=== PATIENT | female | born 2000 | race Caucasian/White ===

== ENCOUNTER 2018-03-18 14:35 | Outpatient (CLI) | payer SELFPAY ==
[2018-03-18 15:47] VITALS: BP 126/73; PULSE 83; RESP 18; TEMP 97.3
--- NOTE | 2018-03-19 06:31 | P.MSEPDOC ---
Presenting Problems - Arrival Data Date of Arrival on Unit: 03/18/18 Time of Arrival on Unit: 14:35 Mode of Transport: Ambulatory - Complaint OB-Reason for Admission/Chief Complaint: Rule Out PROM Comment: pt unsure if she had PROM at 1400, states she had clear fluic Medical History - Information : 1 Para: 0 Term: 0 : 0 Abortions: Spontaneous or Elective: 0 Number of Living Children: 0 - Gestational Age Gestational Age by AB (wks/days): 31 Weeks and 6 Days Review of Systems - Review of Systems Constitutional: No problems Breast: No problems ENT: No problems Cardiovascular: No problems Respiratory: No problems Gastrointestinal: No problems Genitourinary: No problems Musculoskeletal: No problems Neurological: No problems Skin: No problems Vital Signs - Temperature Temperature: 97.3 F Temperature Source: Temporal Artery Scan - Pulse Right Brachial Pulse Rate: 83 Pulse Assessment Method: Automatic Cuff - Respirations Respiratory Rate: 18 Oxygen Delivery Method: Room Air O2 Sat by Pulse Oximetry: 98 - Blood Pressure Right Arm Blood Pressure: 126/73 Blood Pressure Mean: 90 Blood Pressure Source: Automatic Cuff Medical Screen Scoring (Pre) - Cervical Exam Dilation: 0 cm = 0 Effacement: Exam Deferred Membranes: Intact - Uterine Contractions Frequency: N/A Duration: N/A Intensity: N/A - Maternal Vital Signs Maternal Temperature: N/A Maternal Blood Pressure: N/A Signs of Preeclampsia: N/A Maternal Respirations: N/A - Pain Assessment Pain Scale Used: Numeric (1 - 10) Pain Intensity: 0 - Maternal Trauma Maternal Trauma: N/A - Assessment Baseline FHR: 140 Heart Rate - NICHD Category: Category I (Normal) = 0 NST: Reactive Position: N/A Station: N/A - Total Score Total Score (Pre): 0 - Level of Risk Level of Risk: Low (0-5) Physician Notification (Pre) - Physician Notified Physician Notified Date: 03/18/18 Physician Notified Time: 15:25 Physician/Practitioner Notifed:: Dr Walker Spoke With: Dr. Cuevas New Order Received: Yes - Notification Comment Comment: discharge pt home Disposition - Disposition OB Disposition: Triage, Discharge to home, Written follow up instructions reviewed Discharge Date: 03/18/18 Discharge Time: 15:30 I agree with the RN Medical Screening Exam: Yes Risk & Benefit of care provided described in d/c instruction: Yes Diagnosis: FALSE LABOR BEFORE 37 COMPLETED WEEKS OF GEST, THIRD TRI
== END 2018-03-18 15:30 | disposition home or self-care (01) ==
LOC: FBPOP 14:35
PROVIDERS: ATTEND Obstetrics & Gynecology
DX: O47.03 False labor before 37 completed weeks of gestation, third trimester (principal); Z3A.31 31 weeks gestation of pregnancy
CPT/HCPCS: 59025; 84112; 99213

== ENCOUNTER 2018-05-12 06:00 | Inpatient (IN) | payer OTHER ==
[2018-05-12] MEDS ORDERED: OXYTOCIN 10 UNIT/ML 1 ML VIAL IM PRN (06:49)
[2018-05-12] MEDS ORDERED: LIDOCAINE 0.5% (PF) 5 MG/ML (50 ML SDV) SQ PRN (06:49)
[2018-05-12] MEDS ORDERED: METHYLERGONOVINE 0.2 MG/ML 1 ML AMP IM PRN (06:49)
[2018-05-12] MEDS ORDERED: OXYTOCIN 20 UNITS/1000 ML NS 1,000 ML IV SCH (06:49)
[2018-05-12] MEDS ORDERED: TERBUTALINE 1 MG/ML VIAL SQ PRN (06:49)
[2018-05-12] MEDS ORDERED: CARBOPROST TROMETHAMINE 250 MCG/ML 1 ML AMP IM PRN (06:49)
[2018-05-12] MEDS: LACTATED RINGERS 1,000 ML IV SCH ×2 (07:00→10:48)
[2018-05-12] MEDS ORDERED: AMPICILLIN 2,000 MG in SODIUM CHLORIDE 0.9% 100 ML IVPB STA (07:08)
[2018-05-12 07:17] LABS: Basophils % (A) 0 %; Eosinophils # (A) 0.1 k/uL (0-0.7); Eosinophils % (A) 1 %; HCT 36.4 % (34.0-46.0); HGB 12.3 gm/dL (11.4-16.0); Lymphocytes # (A) 2.2 k/uL (1.0-4.8); Lymphocytes % (A) 25 %; MCH 30.9 pg (25.0-35.0); MCHC 33.9 g/dL (31.0-37.0); MCV 91.4 fL (80.0-100.0); Monocytes # (A) 0.7 k/uL (0-1.0); Monocytes % (A) 7 %; Neutrophils # (A) 5.8 k/uL (1.3-7.7); Neutrophils % (A) 64 %; Platelet Count 271 k/uL (150-450); RBC 3.98 m/uL (3.80-5.40); RDW 13.1 % (11.5-15.5)
[2018-05-12 07:21] VITALS: BMI 30.9
[2018-05-12] MEDS ORDERED: SODIUM CHLORIDE 0.9% 100 ML BAG ONE (10:31)
[2018-05-12] MEDS ORDERED: fentaNYL (PF) 50 MCG/ML 5 ML AMP ONE (10:31)
[2018-05-12] MEDS ORDERED: ROPIVACAINE 5MG/ML 20ML VIAL ONE (10:31)
[2018-05-12] MEDS ORDERED: ROPIVACAINE 100 MG, fentaNYL (PF) 200 MCG in SODIUM CHLORIDE 0.9% 76 ML EPIDURAL ONE (10:56)
[2018-05-12] MEDS ORDERED: AMPICILLIN 1,000 MG in SODIUM CHLORIDE 0.9% 50 ML IVPB SCH (11:30)
--- NOTE | 2018-05-12 17:00 | P.HPOB ---
History of Present Illness H&P Date: 05/12/18 Chief Complaint: Intrauterine at term Patient is a 19-year-old at 39 weeks gestation arise for induction of labor. Her course has been unremarkable and she is feeling well at this time. She did do kick counts over the third trimester due to one episode of decreased movement but had been feeling baby move well since then. Pertinent labs include A+ blood type Rh antibody was negative. Rubella was nonimmune, hepatitis B surface antigen and RPR were both negative group B strep was positive. We'll plan group B strep prophylaxis. She is dilated to 2 cm this morning artificial rupture membranes was performed and clear fluid is noted. Category 1 tracing is noted. Past Medical History History of Any Multi-Drug Resistant Organisms: None Reported Past Surgical History: Adenoidectomy, Tonsillectomy Past Anesthesia/Blood Transfusion Reactions: No Reported Reaction Past Psychological History: Anxiety Smoking Status: Never smoker Past Drug Use History: None Reported - Past Family History Mother Family Medical History: No Reported History Medications and Allergies Home Medications Medication Instructions Recorded Confirmed Type No Known Home Medications 03/18/18 05/12/18 History Allergies Allergy/AdvReac Type Severity Reaction Status Date / Time peanut Allergy Anaphylaxis Verified 05/12/18 06:48 Exam Osteopathic Statement: *. No significant issues noted on an osteopathic structural exam other than those noted in the History and Physical/Consult. Vital Signs Temp Pulse Resp BP 05/12/18 16:45 109 H 14 118/69 05/12/18 16:15 100 16 122/71 05/12/18 16:00 100 14 133/73 05/12/18 15:45 104 H 16 120/57 05/12/18 15:30 109 H 14 148/88 05/12/18 15:15 99.1 F 115 H 18 145/63 05/12/18 06:47 97.4 F L 90 14 116/75 Intake and Output 05/12/18 05/12/18 05/12/18 06:59 14:59 22:59 Intake Total 2800 Balance 2800 Intake: IV 2800 Lactated Ringers 1,000 ml 2800 @ 125 mls/hr IV .Q8H CHELE Rx#:[id number] Other: Weight 84.368 kg - OBG Physical Exam Breast: both: normal (no masses) Abdomen: bowel sounds normal, no diffuse tenderness, no bruit present, no guarding noted, no hepatomegaly, no splenomegaly, no mass Vulva: both: normal Vagina: normal moisture, no discharge Cervix: no lesion, no discharge Uterus: normal size, normal contour Adnexa: both: normal Anus/Rectum: normal perianal skin, no rectal mass, no hemorrhoids, heme negative Results Result Diagrams: 05/12/18 06:57
--- NOTE | 2018-05-12 17:01 | P.PROBDLV ---
Vaginal Delivery Note - . Vaginal Delivery Note: Patient progressed complete and pushing with spontaneous vaginal delivery of a viable male over a first-degree perineal laceration. Following delivery of the head a nuchal cord 1 was easily reduced an anterior posterior shoulders were easily delivered. Mouth and nares were then bulb suctioned and baby was placed on mother's abdomen where the umbilical cord was clamped and cut in usual fashion. Nursery personnel was present to assume care. Placenta was then delivered intact and Pitocin was added to the IV. Apgars and weight are pending but both mother and baby appear stable following delivery. Interrupted 3-0 Vicryl suture was used to reapproximate the first-degree perineal laceration.
[2018-05-12] MEDS ORDERED: WITCH HAZEL 1 EACH MED..PAD TOPICAL PRN (18:46)
[2018-05-12] MEDS ORDERED: ACETAMINOPHEN TAB 325 MG TAB PO PRN (18:46)
[2018-05-12] MEDS ORDERED: BENZOCAINE/MENTHOL SPRAY 1 GM/SPRAY AEROSOL TOPICAL PRN (18:46)
[2018-05-12] MEDS ORDERED: LANOLIN CREAM 5 GM TUBE TOPICAL PRN (18:46)
[2018-05-12] MEDS ORDERED: diphenhydrAMINE 25 MG CAP PO PRN (18:46)
[2018-05-12] MEDS ORDERED: SIMETHICONE 80 MG CHEWABLE PO PRN (18:46)
[2018-05-12] MEDS ORDERED: MEASLES-MUMPS-RUBELLA VACC/PF 12,500 UNIT/0.5 ML VIAL SQ ONE (18:46)
[2018-05-12] MEDS ORDERED: ZOLPIDEM 5 MG TAB PO PRN (18:46)
[2018-05-12] MEDS: SENNOSIDES-DOCUSATE SODIUM 1 EACH TAB PO SCH (20:13)
[2018-05-12] MEDS: IBUPROFEN 600 MG TAB PO PRN (20:13)
[2018-05-12 20:32] VITALS: RESP 16
[2018-05-13 06:48] LABS: Basophils % (A) 0 %; Eosinophils # (A) 0.1 k/uL (0-0.7); Eosinophils % (A) 1 %; HCT 31.7 % (34.0-46.0); HGB 10.6 gm/dL (11.4-16.0); Lymphocytes # (A) 2.1 k/uL (1.0-4.8); Lymphocytes % (A) 19 %; MCH 31.3 pg (25.0-35.0); MCHC 33.4 g/dL (31.0-37.0); MCV 93.7 fL (80.0-100.0); Monocytes # (A) 0.8 k/uL (0-1.0); Monocytes % (A) 7 %; Neutrophils # (A) 7.7 k/uL (1.3-7.7); Neutrophils % (A) 70 %; Platelet Count 220 k/uL (150-450); RBC 3.39 m/uL (3.80-5.40); RDW 13.1 % (11.5-15.5)
[2018-05-13] MEDS: SENNOSIDES-DOCUSATE SODIUM 1 EACH TAB PO SCH (07:39)
[2018-05-13] MEDS: IBUPROFEN 600 MG TAB PO PRN (07:41)
--- NOTE | 2018-05-13 09:51 | P.DS ---
Providers Date of admission: 05/12/18 06:37 Expected date of discharge: 05/13/18 Attending physician: Kaveh Lopez Primary care physician: Stated None Hospital Course: Patient is doing very well day 1. She is requesting discharge home today. She is ambulating, voiding, and she is tolerating her diet. She voices no complaints. Vital signs are stable and she is afebrile. Heart regular, lungs clear, extremities are without pain. Abdomen is soft and uterus is firm with lochia reported to be light. Assessment day 1. Plan discharged home follow up with me in 6 weeks. A prescription for Motrin was forwarded to her pharmacy. All other questions are answered for her and discharge instruction were thoroughly reviewed. Patient Condition at Discharge: Good Plan - Discharge Summary New Discharge Prescriptions: New Ibuprofen [Motrin] 600 mg PO Q6HR PRN #30 tab PRN Reason: Pain Discharge Medication List Ibuprofen [Motrin] 600 mg PO Q6HR PRN #30 tab 05/13/18 [Rx] Follow up Appointment(s)/Referral(s): Kaveh Lopez DO [Doctor of Osteopathic Medicine] - 6 Weeks Activity/Diet/Wound Care/Special Instructions: no heavy lifting, limit stairs and driving and pelvic rest. call the office for any high temperatures, heavy bleeding, or severe pain Discharge Disposition: HOME SELF-CARE
[2018-05-13 10:55] VITALS: BP 121/75; PULSE 72; TEMP 98.2
== END 2018-05-13 15:55 | disposition home or self-care (01) | DRG 807 ==
LOC: 4FBP 06:37
PROVIDERS: ADMIT Obstetrics & Gynecology; ATTEND Obstetrics & Gynecology
PROC: 3E0R3NZ Introduction of Analgesics, Hypnotics, Sedatives into Spinal Canal, Percutaneous Approach (ICD-10-PCS; principal; 2018-05-12)
PROC: 10E0XZZ Delivery of Products of Conception, External Approach (ICD-10-PCS; principal; 2018-05-12)
PROC: 00HU33Z Insertion of Infusion Device into Spinal Canal, Percutaneous Approach (ICD-10-PCS; principal; 2018-05-12)
PROC: 10907ZC Drainage of Amniotic Fluid, Therapeutic from Products of Conception, Via Natural or Artificial Opening (ICD-10-PCS; principal; 2018-05-12)
PROC: 0HQ9XZZ Repair Perineum Skin, External Approach (ICD-10-PCS; principal; 2018-05-12)
DX: O69.81X0 Labor and delivery complicated by cord around neck, without compression, not applicable or unspecified (principal); Z37.0 Single live birth; O70.0 First degree perineal laceration during delivery; Z3A.39 39 weeks gestation of pregnancy; O99.824 Streptococcus B carrier state complicating childbirth; Z91.010 Allergy to peanuts
CPT/HCPCS: 85025; 86850; 86900; 86901; 90707

== ENCOUNTER → 2018-11-25 | Outpatient (CLI) | payer OTHER | END | disposition home or self-care (01) | LOC: LABWHC1 10:24 | PROVIDERS: ATTEND Physician Assistant | DX: O20.0 Threatened abortion (principal) | CPT/HCPCS: 36415; 84702 ==

== ENCOUNTER 2019-05-27 17:49 | Outpatient (CLI) | payer OTHER ==
--- NOTE | 2019-05-27 19:28 | US ---
EXAMINATION TYPE: US OB >= 14 wk fetus DATE OF EXAM: 05/27/2019 COMPARISON: None CLINICAL HISTORY: no care, bleeding TECHNIQUE: Transabdominal (TA) GESTATIONAL AGE / DATING Physician Established: Not yet established Dates by LMP: 11/23/2018 (26 weeks/3 days) EDC: 08/30/2019 Dates by First Scan: No previous this is first scan Dates by Current Scan: (21 weeks/1 days) EDC: 10/06/2019 SURVEY IUP: Single PLACENTA: Posterior PREVIA: No Previa FRANK: 15.9 cm Normal CERVICAL LENGTH (transabdominal: norm > 3.0cm): 3.3 cm BIOMETRY PRESENTATION: Vertex BPD: 5.1 cm 21 weeks / 4 days HC: 18.9 cm 21 weeks / 1 days AC: 15.9 cm 21 weeks / 0 days FL: 3.7 cm 21 weeks / 4 days ESTIMATED WEIGHT IN GRAMS: 412.27 grams ESTIMATED WEIGHT IN LBS/OZ: 0 lbs. 15 oz. WEIGHT PERCENTAGE BASED ON ESTABLISHED DATES: <3% HC/AC: 1.2 Normal FL/AC: 23 Normal HEART RATE: 147 bpm RHYTHM: Normal No obvious signs of placental abruption or PROM. No care, measuring 5 weeks less t engle patient's stated LMP. IMPRESSION: Estimated weight is 412 g. Ultrasound gestational age is 21 weeks and 1 day. No complicating pr ocess seen. This is the first exam.
[2019-05-27 20:11] VITALS: BP 117/67; PULSE 71; RESP 18; TEMP 97.3
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
== END 2019-05-27 19:45 | disposition home or self-care (01) ==
LOC: FBPOP 17:49
PROVIDERS: ATTEND Obstetrics & Gynecology
DX: O26.852 Spotting complicating pregnancy, second trimester (principal); Z3A.21 21 weeks gestation of pregnancy
CPT/HCPCS: 76805; 99213

== ENCOUNTER 2019-08-05 11:53 | Outpatient (CLI) | payer OTHER ==
[2019-08-06 00:42] VITALS: BP 129/65; PULSE 96; RESP 16; TEMP 97.3
--- NOTE | 2019-08-06 11:26 | P.MSEPDOC ---
Presenting Problems - Arrival Data Date of Arrival on Unit: 08/05/19 Time of Arrival on Unit: 23:53 Mode of Transport: Ambulatory - Complaint OB-Reason for Admission/Chief Complaint: Rule Out SROM Comment: Patient presents to triage stating she is unsure if she is ruptured, has noted some clear watery, mucousy discharge in her underwear since her appointment on thursday but was unaware she should come in to be checked out until a friend discussed with her that she should come to triage. Denies intercourse or contractions. Medical History - Information : 3 Para: 1 Term: 1 : 0 Abortions: Spontaneous or Elective: 1 Number of Living Children: 1 - Gestational Age Gestational Age by AB (wks/days): 31 Weeks and 2 Days Review of Systems - Review of Systems Constitutional: No problems Breast: No problems ENT: No problems Cardiovascular: No problems Respiratory: No problems Gastrointestinal: No problems Genitourinary: No problems Musculoskeletal: No problems Neurological: No problems Skin: No problems Vital Signs - Temperature Temperature: 97.3 F Temperature Source: Temporal Artery Scan - Pulse Pulse Oximetery Pulse Rate: 96 Pulse Assessment Method: Automatic Cuff - Respirations Respiratory Rate: 16 Oxygen Delivery Method: Room Air O2 Sat by Pulse Oximetry: 98 - Blood Pressure Sitting Blood Pressure: 129/65 Blood Pressure Mean: 86 Blood Pressure Source: Automatic Cuff Medical Screen Scoring (Pre) - Cervical Exam Dilation: 0 cm = 0 Effacement: Exam Deferred Membranes: Intact - Uterine Contractions Frequency: N/A Duration: N/A Intensity: N/A - Maternal Vital Signs Maternal Temperature: N/A Maternal Blood Pressure: N/A Signs of Preeclampsia: N/A Maternal Respirations: N/A - Maternal Trauma Maternal Trauma: N/A - Assessment - Baby A Baseline FHR: 135 Heart Rate - NICHD Category: Category I (Normal) = 0 NST: Reactive Position: N/A Station: N/A - Total Score - Baby A Total Score - Baby A: 0 - Total Score - Baby B Total Score - Baby B: 0 - Total Score - Baby C Total Score - Baby C: 0 - Level of Risk - Baby A Level of Risk - Baby A: Low (0-5) - Level of Risk - Baby B Level of Risk - Baby B: Low (0-5) - Level of Risk - Baby C Level of Risk - Baby C: Low (0-5) Physician Notification (Pre) - Physician Notified Physician Notified Date: 08/06/19 Physician Notified Time: 00:29 New Order Received: Yes - Notification Comment Comment: Orders to discharge patient home with instructions, reinforce to patient that if she ever thinks she is ruptured to come in to be evaluated. Disposition - Disposition OB Disposition: Discharge to home, Written follow up instructions reviewed Discharge Date: 08/06/19 Discharge Time: 00:42 I agree with the RN Medical Screening Exam: Yes Risk & Benefit of care provided described in d/c instruction: Yes Diagnosis: FALSE LABOR BEFORE 37 COMPLETED WEEKS OF GEST, THIRD TRI
== END 2019-08-06 00:42 | disposition home or self-care (01) ==
LOC: FBPOP 11:53
PROVIDERS: ATTEND Obstetrics & Gynecology
DX: O47.03 False labor before 37 completed weeks of gestation, third trimester (principal); Z3A.31 31 weeks gestation of pregnancy
CPT/HCPCS: 59025; 84112; G0463; 99213

== ENCOUNTER 2019-09-30 06:15 | Inpatient (IN) | payer OTHER ==
[2019-09-30] MEDS ORDERED: METHYLERGONOVINE 0.2 MG/ML 1 ML AMP IM PRN (07:13)
[2019-09-30] MEDS ORDERED: LIDOCAINE 0.5% (PF) 5 MG/ML (50 ML SDV) SQ PRN (07:13)
[2019-09-30] MEDS ORDERED: CARBOPROST TROMETHAMINE 250 MCG/ML 1 ML AMP IM PRN (07:13)
[2019-09-30] MEDS ORDERED: AMPICILLIN 2,000 MG in SODIUM CHLORIDE 0.9% 100 ML IVPB STA (07:13)
[2019-09-30] MEDS ORDERED: TERBUTALINE 1 MG/ML VIAL SQ PRN (07:13)
[2019-09-30] MEDS ORDERED: OXYTOCIN 10 UNIT/ML 1 ML VIAL IM PRN (07:13)
[2019-09-30] MEDS ORDERED: OXYTOCIN 30 UNITS/500 ML NS 30 UNIT in SALINE 1 500ML.BAG IV SCH (07:15)
[2019-09-30] MEDS: LACTATED RINGERS 1,000 ML IV SCH ×2 (07:36→11:20)
[2019-09-30 07:54] LABS: Basophils % (A) 0 %; Eosinophils # (A) 0.1 k/uL (0-0.7); Eosinophils % (A) 1 %; HCT 35.2 % (34.0-46.0); HGB 11.8 gm/dL (11.4-16.0); Lymphocytes # (A) 2.1 k/uL (1.0-4.8); Lymphocytes % (A) 23 %; MCHC 33.4 g/dL (31.0-37.0); MCV 95.7 fL (80.0-100.0); Mean Platelet Volume 9.4; Monocytes # (A) 0.6 k/uL (0-1.0); Monocytes % (A) 7 %; Neutrophils # (A) 6.1 k/uL (1.3-7.7); Neutrophils % (A) 67 %; Platelet Count 214 k/uL (150-450); RBC 3.68 m/uL (3.80-5.40); RDW 12.9 % (11.5-15.5); WBC 9.2 k/uL (3.8-10.6)
[2019-09-30] MEDS ORDERED: ROPIVACAINE 100 MG, fentaNYL (PF) 200 MCG in SODIUM CHLORIDE 0.9% 76 ML EPIDURAL ONE (11:09)
[2019-09-30] MEDS: AMPICILLIN 1,000 MG in SODIUM CHLORIDE 0.9% 50 ML IVPB SCH (12:10)
--- NOTE | 2019-09-30 14:19 | P.HPOB ---
History of Present Illness H&P Date: 09/30/19 Chief Complaint: Intrauterine at term Patient is a 19-year-old at 39 weeks gestation arise for induction of labor. Her course has been uncomplicated other than late for care. Otherwise she is feeling well and doing well at this time. Category 1 tracing is noted. She was dilated 3 cm and artificial rupture membranes was performed with clear fluid noted. Pertinent labs did include, Rh antibody was negative, rubella is nonimmune, hepatitis B surface antigen and RPR were both negative. She plans to use epidural for analgesia. Past Medical History Past Medical History: No Reported History History of Any Multi-Drug Resistant Organisms: None Reported Past Surgical History: Adenoidectomy, Tonsillectomy Additional Past Surgical History / Comment(s): childhood Past Anesthesia/Blood Transfusion Reactions: No Reported Reaction Past Psychological History: Anxiety Smoking Status: Never smoker Past Alcohol Use History: None Reported Past Drug Use History: None Reported - Past Family History Mother Family Medical History: No Reported History Medications and Allergies Home Medications Medication Instructions Recorded Confirmed Type Pnv,Calcium 72/Iron/Folic Acid 1 tab PO DAILY 09/30/19 09/30/19 History [ Plus Tablet] Allergies Allergy/AdvReac Type Severity Reaction Status Date / Time peanut Allergy Anaphylaxis Verified 08/06/19 00:17 Exam Osteopathic Statement: *. No significant issues noted on an osteopathic structural exam other than those noted in the History and Physical/Consult. Vital Signs Temp Pulse Resp BP Pulse Ox 09/30/19 07:17 96.1 F L 88 16 127/71 98 Intake and Output 09/29/19 09/30/19 09/30/19 22:59 06:59 14:59 Other: Weight 88.451 kg - OBG Physical Exam Breast: both: normal (no masses) Abdomen: bowel sounds normal, no diffuse tenderness, no bruit present, no guarding noted, no hepatomegaly, no splenomegaly, no mass Vulva: both: normal Vagina: normal moisture, no discharge Cervix: no lesion, no discharge Uterus: normal size, normal contour Adnexa: both: normal Anus/Rectum: normal perianal skin, no rectal mass, no hemorrhoids, heme negative Results Result Diagrams: 09/30/19 07:25 Abnormal Lab Results - Last 24 Hours (Table) 09/30/19 Range/Units 07:25 RBC 3.68 L (3.80-5.40) m/uL
--- NOTE | 2019-09-30 14:20 | P.PROBDLV ---
Vaginal Delivery Note - . Vaginal Delivery Note: Patient breast complete and pushed with spontaneous vaginal delivery of a viable male over an intact perineum. Following delivery of the head a nuchal cord 1 was noted and easily reduced. She was delivered from left occiput posterior position as the baby did rotate from straight OP left OP during the pushing process. Once baby was fully delivered mouth nares were bulb suctioned and baby was placed mother's abdomen where the umbilical cord was allowed to pulsate for 30 seconds prior to clamping and cutting. Nursery personnel was present and assumed care. Placenta was then delivered intact and Pitocin was added to the IV. scores were 9 and 9 at one and 5 minutes respectively. Weight is currently pending. Both mother and baby are stable following delivery.
[2019-09-30] MEDS ORDERED: ZOLPIDEM 5 MG TAB PO PRN (16:06)
[2019-09-30] MEDS ORDERED: diphenhydrAMINE 50 MG CAP PO PRN (16:06)
[2019-09-30] MEDS ORDERED: diphenhydrAMINE 50 MG/ML 1 ML VIAL IVP PRN ×2 (16:06)
[2019-09-30] MEDS ORDERED: LANOLIN CREAM 5 GM TUBE TOPICAL PRN (16:06)
[2019-09-30] MEDS ORDERED: BENZOCAINE/MENTHOL SPRAY 1 GM/SPRAY AEROSOL TOPICAL PRN (16:06)
[2019-09-30] MEDS ORDERED: SIMETHICONE 80 MG CHEWABLE PO PRN (16:06)
[2019-09-30] MEDS ORDERED: HYDROCORTISONE 2.5% RECTAL CREAM 30 GM TUBE RECTAL PRN (16:06)
[2019-09-30] MEDS ORDERED: WITCH HAZEL 1 EACH MED..PAD TOPICAL PRN (16:06)
[2019-09-30] MEDS ORDERED: ACETAMINOPHEN TAB 325 MG TAB PO PRN (16:06)
[2019-09-30] MEDS ORDERED: diphenhydrAMINE 25 MG CAP PO PRN (16:06)
[2019-09-30] MEDS ORDERED: OXYTOCIN 20 UNITS/1000 ML NS 1,000 ML IV SCH (16:15)
[2019-09-30] MEDS: IBUPROFEN 600 MG TAB PO PRN ×2 (16:58→23:00)
[2019-09-30] MEDS: SENNOSIDES-DOCUSATE SODIUM 1 EACH TAB PO SCH (19:45)
[2019-10-01] MEDS: AMPICILLIN 1,000 MG in SODIUM CHLORIDE 0.9% 50 ML IVPB SCH (06:24)
[2019-10-01] MEDS: SENNOSIDES-DOCUSATE SODIUM 1 EACH TAB PO SCH (07:55)
[2019-10-01] MEDS: IBUPROFEN 600 MG TAB PO PRN (07:55)
[2019-10-01 07:58] VITALS: BP 117/65; PULSE 74; RESP 16; TEMP 98.5
[2019-10-01 08:19] LABS: Basophils % (A) 0 %; Eosinophils # (A) 0.1 k/uL (0-0.7); Eosinophils % (A) 1 %; Lymphocytes % (A) 17 %; MCH 31.7 pg (25.0-35.0); MCHC 32.3 g/dL (31.0-37.0); Mean Platelet Volume 9.4; Monocytes # (A) 0.8 k/uL (0-1.0); Monocytes % (A) 7 %; Neutrophils # (A) 8.4 k/uL (1.3-7.7); Neutrophils % (A) 73 %; Platelet Count 214 k/uL (150-450); RBC 3.47 m/uL (3.80-5.40); RDW 13.1 % (11.5-15.5); WBC 11.4 k/uL (3.8-10.6)
--- NOTE | 2019-10-01 12:07 | P.DS ---
Providers Date of admission: 09/30/19 07:06 Expected date of discharge: 10/01/19 Attending physician: Kaveh Lopez Primary care physician: Stated None Hospital Course: Patient is doing very well day 1. She is involuting, voiding and tolerating her diet. She voices no complaints and requests discharged to home today. Vital signs are stable and she is afebrile. Heart regular, lungs clear, extremities without pain. Abdomen soft uterus is firm and lochia is reported be light. Assessment day 1. Plan discharged home follow up with me in 6 weeks. Prescription for Motrin was 40 to her pharmacy. Patient Condition at Discharge: Good Plan - Discharge Summary New Discharge Prescriptions: New Ibuprofen [Motrin] 600 mg PO Q6HR PRN #30 tab PRN Reason: Pain No Action Pnv,Calcium 72/Iron/Folic Acid [ Plus Tablet] 1 tab PO DAILY Discharge Medication List Pnv,Calcium 72/Iron/Folic Acid [ Plus Tablet] 1 tab PO DAILY 09/30/19 [History] Ibuprofen [Motrin] 600 mg PO Q6HR PRN #30 tab 10/01/19 [Rx] Follow up Appointment(s)/Referral(s): Kaveh Lopez DO [Doctor of Osteopathic Medicine] - 6 Weeks Activity/Diet/Wound Care/Special Instructions: No heavy lifting, limit stairs and driving, and pelvic rest. If any high te mperatures, heavy bleeding, or severe pain call my office Discharge Disposition: HOME SELF-CARE
== END 2019-10-01 14:32 | disposition home or self-care (01) | DRG 807 ==
LOC: 4FBP 07:06
PROVIDERS: ADMIT Obstetrics & Gynecology; ATTEND Obstetrics & Gynecology
PROC: 3E033VJ Introduction of Other Hormone into Peripheral Vein, Percutaneous Approach (ICD-10-PCS; principal; 2019-09-30)
PROC: 3E0R3BZ Introduction of Anesthetic Agent into Spinal Canal, Percutaneous Approach (ICD-10-PCS; principal; 2019-09-30)
PROC: 00HU33Z Insertion of Infusion Device into Spinal Canal, Percutaneous Approach (ICD-10-PCS; principal; 2019-09-30)
PROC: 10E0XZZ Delivery of Products of Conception, External Approach (ICD-10-PCS; principal; 2019-09-30)
DX: O69.81X0 Labor and delivery complicated by cord around neck, without compression, not applicable or unspecified (principal); Z37.0 Single live birth; O99.62 Diseases of the digestive system complicating childbirth; K21.9 Gastro-esophageal reflux disease without esophagitis; Z3A.39 39 weeks gestation of pregnancy; Z86.59 Personal history of other mental and behavioral disorders; Z91.010 Allergy to peanuts
CPT/HCPCS: 85025

== ENCOUNTER 2023-09-08 18:45 | Emergency (ER) | payer OTHER ==
[2023-09-08 18:52] VITALS: RESP 18
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
[2023-09-08] MEDS: MORPHINE SULFATE 4 MG/ML SYRINGE IM STA (19:28)
--- NOTE | 2023-09-08 19:52 | XR ---
EXAMINATION TYPE: XR tibia fibula LT, XR knee complete LT, XR femur LT DATE OF EXAM: 09/08/2023 7:49 PM CLINICAL INDICATION:Female, 23 years old with history of fracture; COMPARISON: None TECHNIQUE: XR tibia fibula LT, XR knee complete LT, XR femur LT; tibia/fibula was examined in AP and lateral projections. The knee was evaluated in frontal lateral and oblique views. The femur was eval uated in frontal and lateral views. FINDINGS: No evidence of any acute osseous pathology, joint dislocation, or soft tissue swelling is n oted. IMPRESSION: No evidence of acute fracture.
[2023-09-08] MEDS: HYDROcodone/APAP 5-325MG 1 EACH TAB PO STA (20:33)
[2023-09-08 22:24] VITALS: BP 111/73; PULSE 74; TEMP 98.7
== END 2023-09-08 21:48 | disposition home or self-care (01) ==
LOC: EC 18:45
DX: S83.92XA Sprain of unspecified site of left knee, initial encounter (principal); F17.200 Nicotine dependence, unspecified, uncomplicated; Z91.010 Allergy to peanuts; V29.99XA Rider (driver) (passenger) of other motorcycle injured in unspecified traffic accident, initial encounter; Y92.410 Unspecified street and highway as the place of occurrence of the external cause
CPT/HCPCS: 73552; 73590; 73562; 99283; L1830